=== PATIENT | male | born 1965 | race Caucasian/White ===

== ENCOUNTER 2018-08-29 13:37 | Emergency (ER) | payer OTHER, MEDICAID ==
[2018-08-29 14:31] LABS: PLATELET COUNT 133 10^3/uL (150-400)
--- NOTE | 2018-08-29 15:43 | EDPHY ---
General - History Smoking Status: Never smoked Time Seen by Provider: 08/29/18 14:20 Narrative: CLINICAL IMPRESSION: Suicidal ideation ASSESSMENT/PLAN: 53-year-old male presents to the emergency department voluntarily complaining of suicidal ideations, auditory and visual hallucinations. Please see HPI for full details. Patient initially did not have a plan for suicide but tells me "if you discharge me from this hospital I will go commit suicide by cutting my throat". There are conflicting reports from patient's mother that he was incarcerated for 5 year secondary to murder. We will need to clarify this. Patient met with TLC provider. Initially was felt he could be treated as an outpatient and recently was discharged from [facility] after 3 day stay for suicidal ideations. He has no prior mental health hospitalization or suicide attempt. Patient has recently become homeless from the [facility]. He was medically cleared, placed on an M1 hold, and placement will be pending TLC evaluation and determining past incarceration history. Case signed out to Dr Calero pending eval. DIFFERENTIAL DX: Differential includes but not limited to severe depression, suicidal ideation, toxidrome, intoxication, infection, electrolyte imbalance ED PROCEDURES: See lab and/or imaging results below ED COURSE: 3:40 p.m.: Patient was assessed and evaluated after TLC time buyer met with the patient. He has cocaine in his urine. He has no physical complaints. I discussed with the patient that we would be happy to help arrange outpatient mental health services and help get him to homeless assisted but patient states "if you discharge me from this hospital I will go out and kill myself and cut my throat". 3:45 p.m.: I updated TLC provider. She reports she talked to patient's mom who reported he [facility] 5 [facility] for killing someone. Will need to verify this as placement may be difficult if patient truly did commit murder. CHIEF COMPLAINT: Feeling suicidal, hearing voices HPI: 53-year-old male presents to the emergency department voluntarily stating that he is feeling suicidal, severely depressed, hearing voices telling him to kill himself. Patient was reportedly arrested from his mother's house in [facility] approximately 2 weeks ago and brought to half-way in [place]. He was then transferred to half-way in a [facility]. Patient reports his arrest was related to drug charges. From [facility] he was transported to [facility] because he was complaining of suicidal thoughts. Patient was there for 3 days discharged late last night. Patient reports he was given some money and a bus pass, got lost on the bus system and apparently ended up in [place]. He then states he somehow made it to [facility] but cannot tell me how. He admits to recent cocaine use and states "I have done all the drugs". He states he is being treated for depression but will not tell me what medication he is taking. He reports feeling suicidal but without a plan. He tells me "if you discharge me from this placed I will just go out and kill myself. I will get a knife and cut my throat". Patient has never been hospitalized for mental health illness before. He has no access to firearms. He states he is hearing voices telling him to kill himself. He states his depression became worse in it when he became homeless and was taken from the home where he lives with his mother. He has met with our mental health time buyer but states he will simply kill himself if he is discharged from this hospital. PAST MEDICAL HISTORY: Depression, drug abuse See nurse/triage notes for additional history if applicable Pertinent Past Surgical History: None reported Family History: Reports a family history of depression Social History: Homeless, abuses illicit drugs, denies alcohol, on disability REVIEW OF SYSTEMS: All other systems negative Constitutional: No fever, no chills, appetite change. Eyes: No discharge, vision change ENT: No sore throat, congestion, ear pain. Cardiovascular: No chest pain, no palpitations. Respiratory: No cough, no shortness of breath. Gastrointestinal: No abdominal pain, no vomiting, diarrhea. Genitourinary: No hematuria, dysuria, flank pain, pelvic pain Musculoskeletal: No back pain, joint swelling, joint pain, myalgias. Skin: No rashes, color change. Neurological: No headache, dizziness, weakness. PHYSICAL EXAM: General Appearance: Alert, oriented, appropriate, cooperative, NAD, well hydrated, non-toxic appearing, VSS, no hypoxia. HEENT: Oropharynx clear is no erythema or exudates, no tonsillar hypertrophy or asymmetry. Dentition without abnormality.] Eyes: PERRLA, no acute vision change, nystagmus, swelling, discharge, pain or photosensitivity. Conjunctiva pink, no pallor or injection Neck: Supple, nontender, no lymphadenopathy, no midline pain, FROM, no meningismus. Respiratory: There are no retractions, lungs are clear to auscultation. Cardiac: Regular rate and rhythm, no murmurs or gallops. Gastrointestinal: [Abdomen is soft, nontender, bowel sounds normal Neurological: [ Alert and oriented x 3, CN 2-12 grossly intact Skin: Warm, dry, no rashes, no nodules on palpation. Musculoskeletal: Extremities are symmetrical, full range of motion, no tenderness, deformity, swelling, or erythema. Psychiatric: Patient is oriented X 3, patient states he is suicidal and he will cut his throat if he is discharged from this hospital, denies homicidal ideation, reports hearing voices telling him to hurt himself and reports seeing people that are not in the room. MEDICAL DECISION MAKING: Patient was seen independently. Secondary supervising physician at time of evaluation was Dr. Govea, Dr. Calero . Diagnosis: Suicidal ideations, severe depression. New, requires workup Summary: See Assessment and Plan for summary of ED visit Clinical lab tests: ordered / reviewed. Independent visualization of images, tracing, or specimens: None obtained. Patient Progress: Stable. (Anand Luis) [address] Calero pending placement. Patient has been accepted to [facility] by . I have completed the EMTALA (Espinoza Bowman) 9:00 p.m. Care assumed from Dr. Erica Govea. Awaiting psychiatric placement. Patient has been medically cleared. (Peña Calero) Medical Decision Makinpm: Signed over to Dr. Calero at shift change. This patient presents with suicidal ideation, on an M1 hold. Inpatient mental health disposition pending. (Erica Govea) - Diagnostics EKG Interpretation: EKG interpreted by me reveals normal sinus rhythm, rate 89, LAD, no ST or T segment changes. Interpretation: otherwise normal EKG (Erica Govea) - Objective Vital Signs: Initial Vital Signs Temperature (C) 36.6 C 08/29/18 13:37 Heart Rate 104 H 08/29/18 13:37 Respiratory Rate 16 08/29/18 13:37 Blood Pressure 159/102 H 08/29/18 13:37 O2 Sat (%) 94 08/29/18 13:37 O2 Delivery Mode Room Air Allergies/Adverse Reactions: No Known Allergies Allergy (Unverified 08/29/18 13:52) Home Medications: Medication Instructions Recorded Gabapentin 08/29/18 Hydroxyzine HCl 08/29/18 Zocor 08/29/18 Zoloft 100mg (*) 08/29/18 Laboratory Results: Laboratory Results 08/29/18 14:05 08/29/18 14:05 Medications Given: Discontinued Medications Gabapentin (Neurontin) 600 mg PO TID GINA Stop: 02/25/19 21:59 Last Admin: 08/29/18 20:13 Dose: 600 mg Lorazepam (Ativan) 1 mg PO EDNOW ONE Stop: 08/29/18 19:51 Last Admin: 08/29/18 20:13 Dose: 1 mg Sertraline HCl (Zoloft) 100 mg PO EDNOW ONE Stop: 08/29/18 21:31 Last Admin: 08/29/18 21:32 Dose: 100 mg Trazodone HCl (Trazodone) 100 mg PO EDNOW ONE Stop: 08/29/18 19:45 Last Admin: 08/29/18 20:13 Dose: 100 mg Departure - Departure Disposition: Other Psych, Not [place] Clinical Impression: Suicidal ideation Condition: Fair Referrals: NONE *PRIMARY CARE P,. [Primary Care Provider] - As per Instructions
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
[2018-08-29] MEDS ORDERED: traZODone 50 MG TAB PO ONE (19:44)
[2018-08-29] MEDS ORDERED: SERTRALINE HCL 100 MG TAB PO SCH (19:45)
[2018-08-29] MEDS ORDERED: LORazepam 1 MG TAB PO ONE (19:50)
[2018-08-29] MEDS ORDERED: GABAPENTIN 300 MG CAP ONE (19:59)
[2018-08-29] MEDS ORDERED: SERTRALINE HCL 100 MG TAB PO ONE (21:30)
--- NOTE | 2018-08-29 21:40 | ASMTTCLDSP ---
TLC Discharge Disposition Disposition: Answers: Admit Disposition Notes: Notes: In consultation with [facility] ED Physician, Peña Calero MD and on-call Psychiatrist, Loco Ruiz both concurred that pt appears to meet 27-65 criteria regarding psychiatric hospitalization as pt appears to be at risk of harm to self due to a mental illness condition. Pt was given the prohibited belongings list while in the ED. Discharge Concerns/Recommendations: Notes: Pt admitted to For inpatient Loco Ruiz admission, the following psychiatrist agreed to accept patient for admission to Behavioral Health ([facility]): Hold initiated by: Answers: Court Order Date Signed: 08/29/2018 09:39 PM Electronically Signed By:Jing Hinkle
[2018-08-29] MEDS ORDERED: GABAPENTIN 300 MG CAP PO SCH (22:00)
[2018-08-29 22:49] VITALS: BP 128/88
--- NOTE | 2018-08-29 23:29 | ASMTLCPROG ---
Notes Note: Notes: Please note change in dispo note. Pt agreeable to transfer to [facility] and appears appropriate for [facility]SU level of placement. Pt was accepted at [facility]. Pt's 1st choice was to transfer to a facility in [facility] where pt is required to have legal f/u. ED team agreeable to change in d/c dispo. Date Signed: 08/29/2018 11:28 PM Electronically Signed By:Jing Hinkle
--- NOTE | 2018-08-30 23:27 | CPEKG ---
Test Reason : OPEN Blood Pressure : / mmHG Vent. Rate : 089 BPM Atrial Rate : 093 BPM P-R Int : 132 ms QRS Dur : 090 ms QT Int : 347 ms P-R-T Axes : 065 -71 029 degrees QTc Int : 423 ms Sinus rhythm Left axis deviation Confirmed by Erica Pan ([id number]) on 08/30/2018 11:27:39 PM Referred By: ERICA PAN Confirmed By:Erica Pan
== END 2018-08-29 23:30 ==
DX: R45.851 Suicidal ideations (principal); F32.9 Major depressive disorder, single episode, unspecified
CPT/HCPCS: 80305; G0480